=== PATIENT | female | born 1990 | race Caucasian/White ===

== ENCOUNTER 2018-03-12 09:00 | Outpatient (CLI) | payer BC | END 2018-03-12 20:33 | disposition home or self-care (01) | LOC: SRD 09:00 | PROVIDERS: ATTEND Pediatrics | DX: S83.8X1A Sprain of other specified parts of right knee, initial encounter (principal); X58.XXXA Exposure to other specified factors, initial encounter; Y93.89 Activity, other specified; Y92.89 Other specified places as the place of occurrence of the external cause; Y99.8 Other external cause status | CPT/HCPCS: 73564 ==